=== PATIENT | male | born 1945 | race Caucasian/White ===

== ENCOUNTER 2018-01-20 08:59 | Emergency (ER) | payer MEDICARE, OTHER ==
[2018-01-20 09:09] VITALS: BP 125/85
--- NOTE | 2018-01-20 09:33 | UC ---
Throat Pain/Nasal [place] HPI - HPI Summary HPI Summary: 72-year-old male comes to clinic today with a chief complaint of cough and sputum production. He's been sick for about a week. Sputum is yellow. Cough is worse at night. He's been using cough syrup with very little relief. No fevers no ear pain. - History of Current Complaint Chief Complaint: UCRespiratory Stated Complaint: COUGH RESP ISSUE Time Seen by Provider: 01/20/18 09:11 Pain Intensity: 2 - Allergies/Home Medications Allergies/Adverse Reactions: Allergies Allergy/AdvReac Type Severity Reaction Status Date / Time No Known Allergies Allergy Verified 01/20/18 09:09 PMH/Surg Hx/FS Hx/Imm Hx Neurological History: Seizures - Surgical History Surgical History: Yes Surgery Procedure, Year, and Place: RT ELBOW SURGERY 07/03/13 THEN A REVISION - W/ DEPUY MITESK ANCHOR Xs 2 INPLANTED - CLEARED FOR MRI - DR SMITH, T10- S1 fusion and right partial 11/2011, C2-C7- 11/2004, TURP X2-CMC, multiple knee arthroscopies, bilateral shoulder surgery, lateral release on right elbow many years ago, ORIF right big toe, nerve cut during repair w/ mesh-FUSION C2-C7 FUSION S1-T6, LEFT KNEE REPLACEMENT, RIGHT FOREARM BICEP TENDEN REPAIR - Family History Known Family History: Positive: Hypertension - Social History Alcohol Use: None Alcohol Amount: 0-3 beers per week Substance Use Type: None Substance Use Comment - Amount & Last Used: rx'd CBD oil Smoking Status (MU): Never Smoked Tobacco Have You Smoked in the Last Year: No Review of Systems All Other Systems Reviewed And Are Negative: Yes Constitutional: Positive: Negative Skin: Positive: Negative Eyes: Positive: Negative ENT: Positive: Sore Throat, Nasal Discharge, Sinus Congestion Respiratory: Positive: Shortness Of Breath, Cough, Other - wheezing at night Cardiovascular: Positive: Negative Gastrointestinal: Positive: Negative Motor: Positive: Negative Neurovascular: Positive: Negative Musculoskeletal: Positive: Negative Neurological: Positive: Negative Psychological: Positive: Negative Is Patient Immunocompromised?: No Physical Exam Triage Information Reviewed: Yes Appearance: Well-Appearing, No Pain Distress, Well-Nourished Vital Signs: Initial Vital Signs Temp 97.9 F 01/20/18 09:06 Pulse 58 01/20/18 09:06 Resp 16 01/20/18 09:06 BP 125/85 01/20/18 09:06 Pulse Ox 98 01/20/18 09:06 Vital Signs Reviewed: Yes Eye Exam: Normal Eyes: Positive: Conjunctiva Clear ENT: Positive: Nasal congestion, Nasal drainage, TMs normal Neck exam: Normal Neck: Positive: Supple Respiratory: Positive: Lungs clear, Normal breath sounds, No respiratory distress, Other: - dry cough Cardiovascular: Positive: RRR Musculoskeletal Exam: Normal Musculoskeletal: Positive: Strength Intact, ROM Intact Neurological Exam: Normal Neurological: Positive: Alert, Muscle Tone Normal Psychological Exam: Normal Psychological: Positive: Age Appropriate Behavior Skin Exam: Normal Throat Pain/Nasal Course/Dx - Course Course Of Treatment: We discussed the viral infection and bacterial infections and the role of antibiotics. he prefers to be on antibiotics at this time. - Differential Dx/Diagnosis Provider Diagnoses: bronchitis with bronchospasm. cough Discharge - Sign-Out/Discharge Documenting (check all that apply): Patient Departure All imaging exams completed and their final reports reviewed: No Studies - Discharge Plan Condition: Stable Disposition: HOME Prescriptions: Albuterol HFA INHALER* [Ventolin HFA Inhaler*] 2 puff INH Q4H PRN #1 mdi PRN Reason: Wheezing Azithromyxin TRACE (NF) [Z-Trace (Zithromax) 250 mg tabs #6] 2 tab PO .TODAY, THEN 1 DAILY #6 tab guaiFENesin/CODIEN 100MG-10MG* [Robitussin AC 100Mg-10Mg*] 10 ml PO Q4H PRN # 240 ml MDD 60 PRN Reason: Cough Patient Education Materials: Acute Bronchitis (ED), Bronchospasm (ED), Acute Cough (ED) Referrals: Tushar Mccain MD [Primary Care Provider] - Additional Instructions: FOLLOW UP WITH YOUR DOCTOR IF NOT COMPLETELY IMPROVED. GET RECHECKED FOR ANY WORSENING OF YOUR CONDITION OR QUESTIONS OR CONCERNS. - Billing Disposition and Condition Condition: STABLE Disposition: Home
== END 2018-01-20 09:40 | disposition home or self-care (01) ==
LOC: UCEAST 08:59
DX: J45.909 Unspecified asthma, uncomplicated (principal); R05 Cough
CPT/HCPCS: 99212; G0463

== ENCOUNTER 2018-09-02 20:56 | Emergency (ER) | payer MEDICARE, OTHER ==
[2018-09-02 21:08] VITALS: BP 140/90
[2018-09-02] MEDS ORDERED: Amoxicillin PO (*) 500 MG CAP PO ONE (22:09)
--- NOTE | 2018-09-02 22:52 | UC ---
Minor Trauma HPI - HPI Summary HPI Summary: tripped and fell on fave off a 3 foot deck-- no loc, no neck pain---laceration in mouth, swollen tender abrasions on nose, right eye eechymosis - History of Current Complaint Chief Complaint: UCHeadInjury Stated Complaint: FACIAL INJURY AND LACERATION FROM A FALL Time Seen by Provider: 09/02/18 21:26 Hx Obtained From: Patient Onset/Duration: Sudden Onset Onset Of Pain: Immediate Pain Intensity: 5 Pain Scale Used: 0-10 Numeric Mechanism Of Injury: Blunt Trauma, Fall From Height Of: - 3 Aggravating Factor(s): Nothing Alleviating Factor(s): Ice Associated Signs And Symptoms: Positive: Ecchymosis, Swelling - Allergies/Home Medications Allergies/Adverse Reactions: Allergies Allergy/AdvReac Type Severity Reaction Status Date / Time No Known Allergies Allergy Verified 09/02/18 21:09 Home Medications: Home Medications Naproxen [EC-Naproxen] 500 mg PO DAILY 09/02/18 [History Confirmed 09/02/18] Zolpidem TAB* [Ambien*] 2.5 mg PO BEDTIME PRN MDD 1 09/02/18 [History Confirmed 09/02/18] PMH/Surg Hx/FS Hx/Imm Hx Previously Healthy: No - Surgical History Surgical History: Yes Surgery Procedure, Year, and Place: RT ELBOW SURGERY 07/03/13 THEN A REVISION - W/ DEPUY MITESK ANCHOR Xs 2 INPLANTED - CLEARED FOR MRI - DR SMITH, T10- S1 fusion and right partial 11/2011, C2-C7- 11/2004, TURP X2-CMC, multiple knee arthroscopies, bilateral shoulder surgery, lateral release on right elbow many years ago, ORIF right big toe, nerve cut during repair w/ mesh-FUSION C2-C7 FUSION S1-T6, LEFT KNEE REPLACEMENT, RIGHT FOREARM BICEP TENDEN REPAIR - Family History Known Family History: Positive: Hypertension - Social History Occupation: Employed Full-time Lives: With Family Alcohol Use: None Alcohol Amount: 1 beer today Substance Use Type: None Substance Use Comment - Amount & Last Used: rx'd CBD oil Smoking Status (MU): Never Smoked Tobacco Have You Smoked in the Last Year: No Review of Systems All Other Systems Reviewed And Are Negative: Yes Constitutional: Positive: Negative Skin: Positive: Bruising - under right eye and right side of nose, Other - abrasions on nose,upperlip, side of face and forearms Eyes: Positive: Negative ENT: Positive: Negative Respiratory: Positive: Negative Cardiovascular: Positive: Negative Gastrointestinal: Positive: Negative Genitourinary: Positive: Negative Motor: Positive: Negative Neurovascular: Positive: Negative Musculoskeletal: Positive: Negative Neurological: Positive: Negative Psychological: Positive: Negative Is Patient Immunocompromised?: No Physical Exam Triage Information Reviewed: Yes Appearance: Well-Appearing, Well-Nourished, Pain Distress - mild Vital Signs: Initial Vital Signs Temp 98 F 09/02/18 21:04 Pulse 98 09/02/18 21:04 Resp 16 09/02/18 21:04 BP 140/90 09/02/18 21:04 Pulse Ox 100 09/02/18 21:04 Vital Signs Reviewed: Yes Eye Exam: Normal Eyes: Positive: Conjunctiva Clear, Other: - eecyhmosis--below right eye ENT Exam: Normal ENT: Positive: Normal ENT inspection, Hearing grossly normal, Pharynx normal, Dental tenderness - right front tooth, Other - stellite laceration inside upper lip---no through laceration no laceration past odalis boarder no active bleeding. Negative: Nasal congestion, Nasal drainage, Tonsillar swelling, Trismus, Muffled voice, Hoarse voice, Sinus tenderness Dental Exam: Normal Dental: Negative: Dental Fracture @ Neck exam: Normal Neck: Positive: Supple, Nontender, No Lymphadenopathy Respiratory Exam: Normal Respiratory: Positive: Chest non-tender, Lungs clear, Normal breath sounds, No respiratory distress, No accessory muscle use Cardiovascular Exam: Normal Cardiovascular: Positive: RRR, Pulses Normal, Brisk Capillary Refill Musculoskeletal Exam: Normal Musculoskeletal: Positive: Strength Intact, ROM Intact, No Edema Neurological Exam: Normal Neurological: Positive: Alert, Muscle Tone Normal Psychological Exam: Normal Skin: Positive: Other - abrasions and facial and forearm contusions as described Diagnostics - Radiology No standard instances Radiology Interpretation Completed By: Radiologist - no fracture, no acute abnormalities of brain Minor Trauma Course/Dx - Course Course Of Treatment: wounds clean EMELYN applied, tetnus is up to date, amoxicillin and perodex rinse for mouth laceration, ice to face and eye follow with Dr. Morejon in next 3 days-- tylenol for pain - Differential Dx/Diagnosis Provider Diagnosis: Traumatic ecchymosis of face, Abrasion forearm, Laceration of oral cavity Discharge - Sign-Out/Discharge Documenting (check all that apply): Patient Departure All imaging exams completed and their final reports reviewed: Yes - Discharge Plan Condition: Stable Disposition: HOME Prescriptions: Amoxicillin PO (*) [Amoxicillin 500 MG CAP*] 500 mg PO TID #30 cap Chlorhexidine MOUTHWASH 0.12%* [Peridex Mouth Wash 0.12%*] 15 ml MT BID #473 ml Patient Education Materials: Black Eye (ED), Abrasion (ED), Hypertension (ED), Ice Pack Application (ED), Facial Contusion (ED) Referrals: Tushar Morejon MD [Primary Care Provider] - 3 Days - Billing Disposition and Condition Condition: STABLE Disposition: Home
== END 2018-09-02 22:35 | disposition home or self-care (01) ==
LOC: UCEAST 20:56
DX: S00.33XA Contusion of nose, initial encounter (principal); S50.812A Abrasion of left forearm, initial encounter; S50.811A Abrasion of right forearm, initial encounter; S00.31XA Abrasion of nose, initial encounter; S00.511A Abrasion of lip, initial encounter; S01.512A Laceration without foreign body of oral cavity, initial encounter; W17.89XA Other fall from one level to another, initial encounter; Y92.9 Unspecified place or not applicable; Z96.652 Presence of left artificial knee joint
CPT/HCPCS: 70450; 70486; 99213; A9270-GY; G0463